=== PATIENT | female | born 1940 | race Caucasian/White ===

== ENCOUNTER 2020-12-13 16:24 | Inpatient (IN) | payer MEDICARE ==
[~2020-12-13] VITALS: Ht 160 cm; Wt 58.1 kg
[~2020-12-13 16:24] MED LIST: COMBIVENT RESPIM4 GM IH; DICYCLOMINE HCL20 MG PO; ENALAPRIL MALEA20 MG PO; HYDROCHLOROTHIA25 MG PO; HYDROCODON-ACE1 EAC9 PO; LATANOPROST2.5 ML OP; LEVOTHYROXINE50 MCG PO; LORAZEPAM2 MG PO; LORZONE750 MG PO; OMEPRAZOLE40 MG PO; PREMPRO 0.45-11 EACH PO; SIMVASTATIN40 MG PO; SUCRALFATE1 GM PO; VOLTAREN100 GM TOP; ZOLPIDEM TARTRA10 MG PO
[2020-12-13] MEDS ORDERED: SODIUM CHLORIDE 0.9% 1000ML 1,000 ML IV STA (16:32)
[2020-12-13 16:43] LABS: BASOPHILS # (AUTO) 0.1 (0.0-0.1); BASOPHILS % 0.4 % (0.0-1.0); EOSINOPHILS # (AUTO) 0.1 (0.0-0.4); EOSINOPHILS % 0.2 % (0.0-6.0); HEMATOCRIT 29.6 % (34.2-44.1); HEMOGLOBIN 9.4 g/dL (12.0-16.0); LYMPHOCYTES # (AUTO) 2.3 (1.0-3.2); LYMPHOCYTES % 9.5 % (18.0-39.1); MEAN CORPUSCULAR HEMOGLOBIN 29.9 pg (28-32); MEAN CORPUSCULAR HGB CONC 31.8 g/dL (31-35); MEAN CORPUSCULAR VOLUME 94.3 fL (81-99); MONOCYTES % 4.1 % (4.4-11.3); NEUTROPHILS # (AUTO) 20.5 (2.1-6.9); NEUTROPHILS % 84.8 % (38.7-80.0); PLATELET COUNT 511 x10e3/uL (140-360); RED BLOOD COUNT 3.14 x10e6/uL (3.6-5.1); RED CELL DISTRIBUTION WIDTH 15.1 % (11.7-14.4)
[2020-12-13] MEDS ORDERED: ONDANSETRON HCL INJ 2MG/ML 2ML 2 MG/ML VIAL IV PRN ×2 (16:45→19:45)
[2020-12-13 17:00] LABS: ALBUMIN 2.6 g/dL (3.5-5.0); ALBUMIN/GLOBULIN RATIO 0.7 (0.8-2.0); ANION GAP 22.1 mmol/L (8-16); CALCIUM 7.7 mg/dL (8.4-10.2); CREATININE, SERUM 3.45 mg/dL (0.57-1.11); POTASSIUM 3.1 mmol/L (3.5-5.1)
[2020-12-13] MEDS ORDERED: CEFEPIME HCL 1GM 1 GM in SODIUM CHLORIDE 0.9% 50ML 50 ML IV ONE (17:15)
[2020-12-13] MEDS ORDERED: SODIUM CHLORIDE 0.9% 1000ML 1,000 ML IV ONE (17:15)
[2020-12-13] MEDS ORDERED: CEFEPIME HCL 1 GM VIAL IV ONE (17:15)
[2020-12-13] MEDS ORDERED: DIATRIZOATE MEGL/DIATRIZOA SOD 30 ML BTL PO ONE (17:25)
[2020-12-13 17:40] LABS: CLARITY,URINE CLOUDY (CLEAR); COLOR,URINE YELLOW (YELLOW)
[2020-12-13 17:41] LABS: KETONES,URINE NEGATIVE (NEGATIVE); LEUKOCYTE ESTERASE ,URINE SMALL (NEGATIVE); NITRITE,URINE NEGATIVE (NEGATIVE); PROTEIN,URINE DIPSTICK 2+ (NEGATIVE); URINE UROBILINOGEN 0.2 mg/dL (0.2 - 1)
[2020-12-13 17:48] LABS: BACTERIA,URINE MANY /HPF
[2020-12-13 17:49] LABS: EPITHELIAL CELLS,URINE MODERATE /LPF
[2020-12-13] MEDS ORDERED: SODIUM BICARBONATE 8.4% SYRING 150 ML in DEXTROSE 5% 1,000 ML IV ONE (20:00)
[2020-12-13] MEDS: PANTOPRAZOLE 40 MG 10ML VIAL IV SCH (20:00)
[2020-12-13] MEDS ORDERED: POTASSIUM CHLORIDE 20MEQ/15ML UDC PO ONE (20:00)
[2020-12-13] MEDS ORDERED: CEFEPIME HCL 1 GM VIAL IV SCH (22:00)
[2020-12-14] VITALS (9 sets, daily range): BP systolic 89–114; BP diastolic 33–57
[2020-12-14] MEDS ORDERED: SODIUM BICARBONATE 8.4% SYRING 100 ML ONE (00:07)
[2020-12-14] MEDS ORDERED: CEFEPIME HCL 1GM 1 GM in SODIUM CHLORIDE 0.9% 50ML 50 ML IV SCH (02:00)
[2020-12-14] MEDS ORDERED: CEFEPIME HCL 1 GM VIAL ONE ×3 (02:24→15:10)
[2020-12-14] MEDS ORDERED: SODIUM CHLORIDE 0.9% 50ML 50 ML ONE ×2 (02:24→07:38)
[2020-12-14 06:53] LABS: ALBUMIN 2.1 g/dL (3.5-5.0); ALBUMIN/GLOBULIN RATIO 0.7 (0.8-2.0); ANION GAP 16.6 mmol/L (8-16); CREATININE, SERUM 2.52 mg/dL (0.57-1.11)
[2020-12-14 07:00] LABS: BASOPHILS % 0.2 % (0.0-1.0); EOSINOPHILS % 0.2 % (0.0-6.0); HEMATOCRIT 24.5 % (34.2-44.1); LYMPHOCYTES # (AUTO) 0.8 (1.0-3.2); LYMPHOCYTES % 6.6 % (18.0-39.1); MEAN CORPUSCULAR HGB CONC 32.7 g/dL (31-35); MEAN CORPUSCULAR VOLUME 91.8 fL (81-99); MONOCYTES # (AUTO) 0.4 (0.2-0.8); MONOCYTES % 3.7 % (4.4-11.3); NEUTROPHILS # (AUTO) 10.5 (2.1-6.9); NEUTROPHILS % 88.7 % (38.7-80.0); PLATELET COUNT 442 x10e3/uL (140-360); RED BLOOD COUNT 2.67 x10e6/uL (3.6-5.1); RED CELL DISTRIBUTION WIDTH 14.9 % (11.7-14.4)
[2020-12-14 07:06] LABS: CALCIUM 6.8 mg/dL (8.4-10.2); CREATINE KINASE MB 1.6 ng/mL (0-5.0); POTASSIUM 2.6 mmol/L (3.5-5.1)
[2020-12-14] MEDS ORDERED: POTASSIUM CHLORIDE 20MEQ/100ML 200 ML IV ONE ×2 (08:30→14:00)
[2020-12-14] MEDS: SODIUM BICARBONATE 8.4% SYRING 150 ML in DEXTROSE 5% 1,000 ML IV SCH ×2 (08:40→15:05)
[2020-12-14] MEDS: PANTOPRAZOLE 40 MG 10ML VIAL IV SCH (08:40)
[2020-12-14] MEDS ORDERED: SODIUM CHLORIDE 0.9% 1000ML 1,000 ML IV ONE (13:30)
[2020-12-14 14:41] LABS: CREATINE KINASE MB 1.2 ng/mL (0-5.0)
[2020-12-14] MEDS ORDERED: POTASSIUM CHLORIDE 20 MEQ TAB CR PO ONE (14:45)
[2020-12-14] MEDS: CEFEPIME HCL 1GM 1 GM in SODIUM CHLORIDE 0.9% 50ML 50 ML IV SCH ×2 (15:07→21:50)
[2020-12-14] MEDS ORDERED: SODIUM CHLORIDE 0.9% 100 ML ONE (15:11)
[2020-12-14] MEDS: HYDROCODONE/APAP 10MG-325MG TAB PO PRN (21:48)
[2020-12-15] VITALS (8 sets, daily range): BP systolic 103–127; BP diastolic 46–57
[2020-12-15] MEDS: CEFEPIME HCL 1GM 1 GM in SODIUM CHLORIDE 0.9% 50ML 50 ML IV SCH ×3 (05:32→22:04)
[2020-12-15] MEDS: HYDROCODONE/APAP 10MG-325MG TAB PO PRN ×3 (05:33→20:46)
[2020-12-15 06:20] LABS: BASOPHILS % 0.4 % (0.0-1.0); EOSINOPHILS % 0.1 % (0.0-6.0); HEMOGLOBIN 7.5 g/dL (12.0-16.0); LYMPHOCYTES # (AUTO) 1.6 (1.0-3.2); LYMPHOCYTES % 19.6 % (18.0-39.1); MEAN CORPUSCULAR HEMOGLOBIN 30.5 pg (28-32); MEAN CORPUSCULAR HGB CONC 34.6 g/dL (31-35); MEAN CORPUSCULAR VOLUME 88.2 fL (81-99); MONOCYTES # (AUTO) 0.8 (0.2-0.8); MONOCYTES % 10.1 % (4.4-11.3); NEUTROPHILS # (AUTO) 5.5 (2.1-6.9); NEUTROPHILS % 69.4 % (38.7-80.0); PLATELET COUNT 397 x10e3/uL (140-360); RED BLOOD COUNT 2.46 x10e6/uL (3.6-5.1); RED CELL DISTRIBUTION WIDTH 14.4 % (11.7-14.4)
[2020-12-15 06:30] LABS: HEMATOCRIT 21.7 % (34.2-44.1)
[2020-12-15 06:38] LABS: ALBUMIN 2.2 g/dL (3.5-5.0); ALBUMIN/GLOBULIN RATIO 0.7 (0.8-2.0); ANION GAP 13.4 mmol/L (8-16); CALCIUM 7.2 mg/dL (8.4-10.2); CREATININE, SERUM 1.42 mg/dL (0.57-1.11); MAGNESIUM 1.4 MG/DL (1.3-2.1)
[2020-12-15 06:41] LABS: POTASSIUM 2.4 mmol/L (3.5-5.1)
[2020-12-15] MEDS ORDERED: POTASSIUM CHLORIDE 20MEQ/100ML 200 ML IV ONE (06:45)
[2020-12-15] MEDS: CHOLESTYRAMINE 4 GM PACKET PO SCH ×2 (08:20→16:01)
[2020-12-15] MEDS: LACTOBACILLUS ACIDOPHILUS CAPSULE PO SCH ×3 (08:20→20:45)
[2020-12-15] MEDS: PANTOPRAZOLE 40 MG 10ML VIAL IV SCH (08:20)
[2020-12-15] MEDS: SODIUM BICARBONATE 8.4% SYRING 150 ML in DEXTROSE 5% 1,000 ML IV SCH ×2 (08:30→20:45)
[2020-12-15] MEDS ORDERED: POTASSIUM CHLORIDE 20MEQ/100ML 100 ML IV ONE (13:15)
[2020-12-15] MEDS ORDERED: POTASSIUM CHLORIDE 10MEQ/100ML 100 ML IV ONE (18:00)
[2020-12-15] MEDS: LATANOPROST(OPTH) 2.5 ML BTL OP SCH (20:45)
[2020-12-16] VITALS (8 sets, daily range): BP systolic 99–125; BP diastolic 41–72
[2020-12-16] MEDS: HYDROCODONE/APAP 10MG-325MG TAB PO PRN ×3 (03:50→18:25)
[2020-12-16] MEDS: LEVOTHYROXINE SODIUM 50 MCG TAB PO SCH (06:05)
[2020-12-16] MEDS: CEFEPIME HCL 1GM 1 GM in SODIUM CHLORIDE 0.9% 50ML 50 ML IV SCH ×3 (06:05→22:42)
[2020-12-16 06:31] LABS: BASOPHILS # (AUTO) 0.1 (0.0-0.1); BASOPHILS % 0.5 % (0.0-1.0); EOSINOPHILS # (AUTO) 0.1 (0.0-0.4); EOSINOPHILS % 0.9 % (0.0-6.0); HEMOGLOBIN 7.4 g/dL (12.0-16.0); LYMPHOCYTES # (AUTO) 2.2 (1.0-3.2); LYMPHOCYTES % 20.1 % (18.0-39.1); MEAN CORPUSCULAR HEMOGLOBIN 29.5 pg (28-32); MEAN CORPUSCULAR HGB CONC 33.5 g/dL (31-35); MONOCYTES % 8.9 % (4.4-11.3); NEUTROPHILS # (AUTO) 7.6 (2.1-6.9); NEUTROPHILS % 69.1 % (38.7-80.0); PLATELET COUNT 407 x10e3/uL (140-360); RED BLOOD COUNT 2.51 x10e6/uL (3.6-5.1)
[2020-12-16 06:37] LABS: HEMATOCRIT 22.1 % (34.2-44.1)
[2020-12-16 06:51] LABS: ALBUMIN 2.2 g/dL (3.5-5.0); ALBUMIN/GLOBULIN RATIO 0.7 (0.8-2.0); ANION GAP 12.3 mmol/L (8-16); CALCIUM 7.2 mg/dL (8.4-10.2); CREATININE, SERUM 0.97 mg/dL (0.57-1.11)
[2020-12-16 06:59] LABS: POTASSIUM 2.3 mmol/L (3.5-5.1)
[2020-12-16 07:00] LABS: MAGNESIUM 1.1 MG/DL (1.3-2.1)
[2020-12-16] MEDS ORDERED: MAGNESIUM SULFATE 2GM/50ML 50 ML IV ONE (08:00)
[2020-12-16] MEDS ORDERED: POTASSIUM CHLORIDE 20MEQ/100ML 200 ML IV ONE ×2 (08:00→16:00)
[2020-12-16 08:13] LABS: % IRON SATURATION 25 % (15-50); IRON 61 ug/dL (50-170); TOTAL IRON BINDING CAPACITY 245 ug/dL (261-478); TRANSFERRIN 175 mg/dL (180-382)
[2020-12-16] MEDS: CHOLESTYRAMINE 4 GM PACKET PO SCH ×2 (09:00→15:59)
[2020-12-16] MEDS: PANTOPRAZOLE 40 MG 10ML VIAL IV SCH (09:44)
[2020-12-16] MEDS: LACTOBACILLUS ACIDOPHILUS CAPSULE PO SCH ×3 (09:44→20:31)
[2020-12-16] MEDS: LATANOPROST(OPTH) 2.5 ML BTL OP SCH (20:31)
[2020-12-17] MEDS: HYDROCODONE/APAP 10MG-325MG TAB PO PRN ×2 (00:55→06:33)
[2020-12-17 01:05] VITALS: BP 125/56
[2020-12-17 05:01] VITALS: BP 102/60
[2020-12-17 05:42] LABS: BASOPHILS % 0.4 % (0.0-1.0); EOSINOPHILS # (AUTO) 0.1 (0.0-0.4); EOSINOPHILS % 0.8 % (0.0-6.0); HEMATOCRIT 23.8 % (34.2-44.1); HEMOGLOBIN 7.8 g/dL (12.0-16.0); LYMPHOCYTES # (AUTO) 1.9 (1.0-3.2); LYMPHOCYTES % 17.2 % (18.0-39.1); MEAN CORPUSCULAR HEMOGLOBIN 29.7 pg (28-32); MEAN CORPUSCULAR HGB CONC 32.8 g/dL (31-35); MEAN CORPUSCULAR VOLUME 90.5 fL (81-99); MONOCYTES # (AUTO) 1.1 (0.2-0.8); MONOCYTES % 10.2 % (4.4-11.3); NEUTROPHILS # (AUTO) 7.8 (2.1-6.9); PLATELET COUNT 438 x10e3/uL (140-360); RED BLOOD COUNT 2.63 x10e6/uL (3.6-5.1); RED CELL DISTRIBUTION WIDTH 14.1 % (11.7-14.4)
[2020-12-17] MEDS: CEFEPIME HCL 1GM 1 GM in SODIUM CHLORIDE 0.9% 50ML 50 ML IV SCH (05:52)
[2020-12-17] MEDS: LEVOTHYROXINE SODIUM 50 MCG TAB PO SCH (05:52)
[2020-12-17 06:22] LABS: ANION GAP 12.2 mmol/L (8-16); BLOOD UREA NITROGEN 23 mg/dL (7-26); BUN/CREATININE RATIO 29 (6-25); CALCIUM 7.3 mg/dL (8.4-10.2); CARBON DIOXIDE 29 mmol/L (22-29); CHLORIDE 106 mmol/L (98-107); EST GLOMERULAR FILTRATION RATE > 60 ML/MIN (60-); GLUCOSE 103 mg/dL (74-118); POTASSIUM 3.2 mmol/L (3.5-5.1); SODIUM 144 mmol/L (136-145)
[2020-12-17 07:14] VITALS: BP 102/60
[2020-12-17 07:38] VITALS: BP 128/54
[2020-12-17] MEDS: LACTOBACILLUS ACIDOPHILUS CAPSULE PO SCH (09:23)
[2020-12-17] MEDS: CHOLESTYRAMINE 4 GM PACKET PO SCH (09:23)
[2020-12-17] MEDS: PANTOPRAZOLE 40 MG 10ML VIAL IV SCH (09:23)
[2020-12-17] MEDS ORDERED: POTASSIUM CHLORIDE 20 MEQ TAB CR PO ONE (09:30)
== END 2020-12-17 10:40 | disposition home or self-care (01) | DRG 871 ==
LOC: ER 16:33 → ERHOLD 19:43 → MED/SURG3 12-14 00:08
PROVIDERS: ADMIT Family Medicine; ATTEND Family Medicine
DX: A41.9 Sepsis, unspecified organism (principal); N17.0 Acute kidney failure with tubular necrosis; E87.2 Acidosis; A09 Infectious gastroenteritis and colitis, unspecified; N39.0 Urinary tract infection, site not specified; D72.829 Elevated white blood cell count, unspecified; E86.1 Hypovolemia; Z20.822 Contact with and (suspected) exposure to COVID-19; I12.9 Hypertensive chronic kidney disease with stage 1 through stage 4 chronic kidney disease, or unspecified chronic kidney disease; N18.30 Chronic kidney disease, stage 3 unspecified; E83.42 Hypomagnesemia; E86.0 Dehydration; D64.9 Anemia, unspecified; F41.9 Anxiety disorder, unspecified; Z87.891 Personal history of nicotine dependence
CPT/HCPCS: 36415; 51700; 71045; 74176; 76770; 80048; 80053; 81001; 82150; 82550; 82553; 83540; 83605; 83690; 83735; 84466; 84484; 85025; 87040; 87086; 87186; 93005; 96361; 97139; 99251; 99285; J0692; J2405; J3475; J3480; J7030; J7050; J7070; U0002